=== PATIENT | female | born 1970 | race Two or more races ===

== ENCOUNTER 2023-12-22 16:55 | Emergency (ER) | payer OTHER ==
[~2023-12-22] VITALS: Ht 154.9 cm; Wt 67.1 kg
[2023-12-22] MEDS ORDERED: METFORMIN HCL1000 M2 PO (18:00)
[2023-12-22] MEDS ORDERED: COZAAR25 MG PO (18:00)
[2023-12-22] MEDS ORDERED: HUMULIN 70100 UNIT/2 SQ (18:00)
[2023-12-22] MEDS ORDERED: LASIX20 MG (18:01)
[2023-12-22] MEDS ORDERED: NORFLEX100MG PO (21:35)
== END 2023-12-22 21:58 | disposition home or self-care (01) ==
LOC: ER 16:57
DX: S93.401A Sprain of unspecified ligament of right ankle, initial encounter (principal); W18.30XA Fall on same level, unspecified, initial encounter; Y93.89 Activity, other specified; Y92.018 Other place in single-family (private) house as the place of occurrence of the external cause; Y99.9 Unspecified external cause status; Z88.0 Allergy status to penicillin; Z91.013 Allergy to seafood; E11.9 Type 2 diabetes mellitus without complications; Z79.84 Long term (current) use of oral hypoglycemic drugs; I10 Essential (primary) hypertension